=== PATIENT | female | born 1995 | race Caucasian/White ===

== ENCOUNTER 2020-02-22 12:32 | Outpatient (RCR) | payer MEDICAID, SELFPAY | END 2020-03-07 23:59 | disposition home or self-care (01) | LOC: SPT 12:32 | PROVIDERS: PCP Family Medicine; Referring Provider Family Medicine; Visit Provider Family Medicine | DX: O26.893 Other specified pregnancy related conditions, third trimester (principal); Z3A.00 Weeks of gestation of pregnancy not specified | CPT/HCPCS: 97110; 97161; 97530 ==

== ENCOUNTER 2020-04-02 19:13 | Inpatient (IN) | payer MEDICAID, SELFPAY ==
[2020-04-02] VITALS (8 sets, daily range): BP systolic 0–155; BP diastolic 0–94; PULSE 71–91; TEMP 36.9; BMI 40.3
[2020-04-02 20:57] LABS: Basophils % 0.3 %; Eosinophils # 0.1 10^3/uL (0.0-0.8); Eosinophils % 1.5 %; Hematocrit 33.5 % (37.0-47.0); Lymphocytes # 2.3 10^3/uL (0.8-4.8); Lymphocytes % 24.3 %; Mean Corpuscular HGB Conc 32.8 g/dL (30.0-36.0); Mean Corpuscular Hemoglobin 29.3 pg (28.0-34.0); Mean Corpuscular Volume 89.1 fL (81-99); Monocytes # 0.5 10^3/uL (0.2-0.9); Monocytes % 4.8 %; Neutrophils # 6.41 10^3/uL (1.8-7.7); Neutrophils % 68.5 %; Nucleated Red Blood Cells % 0 %; Platelet Count 252 10^3/cmm (130-400); Red Blood Count 3.76 10^6/uL (4.1-5.3); Red Cell Distribution Width 13.1 % (12.1-15.1); White Blood Count 9.4 10^3/uL (4.0-10.0)
[2020-04-02] MEDS: miSOPROStol 100 mcg tablet 25 MCG VAGINAL (21:02)
[2020-04-02] MEDS: dextrose 5%-lactated ringers 1,000 ML 125 ML IV (21:03)
[2020-04-02] MEDS: ampicillin 2,000 MG in sodium chloride 0.9% (plus) 50 ML 100 MG IV (21:04)
[2020-04-03] VITALS (118 sets, daily range): BP systolic 0–161; BP diastolic 0–94; PULSE 64–143; RESP 16–19; TEMP 36.6–37; O2SAT 97–98
[2020-04-03] MEDS: ampicillin 1,000 MG in sodium chloride 0.9% (plus) 50 ML 100 MG IV ×6 (01:30→22:36)
[2020-04-03] MEDS: miSOPROStol 100 mcg tablet 25 MCG VAGINAL (03:14)
[2020-04-03] MEDS: lactated ringers 1,000 ML 999 ML IV ×2 (08:45→21:30)
[2020-04-03] MEDS: oxytocin 30 UNIT/500 ML BAG IV (09:17)
[2020-04-03] MEDS: dextrose 5%-lactated ringers 1,000 ML 125 ML IV ×2 (11:53→23:41)
[2020-04-03] MEDS: fentaNYL 50 mcg/mL INJ 2mL IV ×5 (14:53→20:16)
--- NOTE | 2020-04-03 23:28 | P.ANESASSM_ITS ---
Pre-Anesthetic Assessment Pre-Anesthetic Assessment: Height/Weight: Height 1.63 m Weight 106.594 kg Temp Pulse Resp BP Pulse Ox 97.9 F 122 H 18 123/69 98 04/03/20 19:00 04/03/20 23:24 04/03/20 20:16 04/03/20 23:24 04/03/20 23:22 Preop Diagnosis: IUP Proposed Procedure: Lumbar Labor Epidural Was Beta Paz taken within 24 hours: N/A Social: Social History: No alcohol and No tobacco Exam: Pre-Anes Outpt Exam: alert, oriented x 3, clear to auscultation bilaterally and regular rate & rhythm History/ROS: No significant history except as noted and No significant complaints Pulmonary: Pulmonary: None reported CV/HEM: CV/HEM: None reported : : None reported Hepatic: Hepatic: None reported GI: GI: None reported Metabolic: Metabolic: None reported Musc/skel: Musc/skel: Lower Back Pain Neuropsych: Neuropsych: None reported Anesthetic Plan: ASA status: 2 Anesthesia: Regional (specify below) (epidural) Meds/Allergies Current Medications: Current Medications Generic Name Dose Route Start Last Admin Trade Name Freq PRN Reason Stop Dose Admin Fentanyl 25 - 100 mcg 04/02/20 19:53 04/03/20 20:16 Sublimaze IV 75 mcg Q1H PRN Administration SEVERE PAIN Lactated Ringer's 1,000 mls @ 999 m ls/hr 04/02/20 19:53 04/03/20 10:36 Lactated Ringers IV Infused .Q1H1M PRN Infusion Per L&D Rescitati on Protocol Dextrose/Lactated Ringer's 1,000 mls @ 125 m ls/hr 04/02/20 20:00 04/03/20 15:30 Dextrose 5%-Lact ated Ringers IV 125 mls/hr .Q8H NÉSTOR Infusion Ampicillin Sodium 1,000 mg/ 50 mls @ 100 mls/ hr 04/03/20 00:01 04/03/20 22:36 Sodium Chloride IV 100 mls/hr Q4H NÉSTOR Administration Protocol Dextrose/Lactated Ringer's 1,000 mls @ 125 m ls/hr 04/02/20 20:15 04/03/20 12:47 Dextrose 5%-Lact ated Ringers IV Not Given .Q8H NÉSTOR Oxytocin 30 unit in 500 ml s @ 1 mls/hr 04/03/20 07:30 04/03/20 19:51 Pitocin IV 8 milliunit/min .Q24H NÉSTOR 8 mls/hr Titration Protocol 1 MILLIUNIT/MIN Ropivacaine 200 mg in 100 mls @ 13 mls/hr 04/03/20 21:30 04/03/20 23:14 Naropin Premix EPIDURAL 12 mls/hr .Q7H42M NÉSTOR Administration Lactated Ringer's 1,000 mls @ 999 m ls/hr 04/03/20 21:27 04/03/20 21:30 Lactated Ringers IV 999 mls/hr .Q1H1M PRN Administration See label comment s PFSH Anesthesia Female Reproductive History: Date of last menstrual period: 06/23/19 : 6 Data Anesthesia CBC & Chem 7: 04/02/20 20:30 Other Labs: Laboratory Results - last 48 hr 04/02/20 20:30 WBC 9.4 RBC 3.76 L Hgb 11.0 L Hct 33.5 L MCV 89.1 MCH 29.3 MCHC 32.8 RDW 13.1 Plt Count 252 MPV 11.0 H Neut % (Auto) 68.5 Lymph % (Auto) 24.3 [place] % (Auto) 4.8 Eos % (Auto) 1.5 Baso % (Auto) 0.3 Neut # (Auto) 6.41 Lymph # (Auto) 2.3 [place] # (Auto) 0.5 Eos # (Auto) 0.1 Baso # (Auto) 0.0 Nucleated RBC % (auto) 0 Nucleated RBCs # 0.0 Cardiac Studies: No Data to Display Anesthesia Procedures Epidural: Time Out Performed: Yes Consents Signed: Procedure Consent Consent: from patient, risks and benefits reviewed and patient agrees to proceed Lumbar Level: L3-L4 Epidural position: sitting Epidural procedure: sterile prep of area, 1% lidocaine to numb the area (5 @ l4-5 and 5cc @ l3-4), 18 g needle, negative for paresthesia passed, neg for paresthesia, test dose given, 1.5% xylocaine 1:200k epi (5), 0.2% Ropivacaine bolus ml (5), placed PCEA (5cc q10min x 3), no systemic response, sterile dressing applied, L.U.D. no apparent complications and 0.2% Ropiavacaine @ mls/hr (12) Additional Comments: Called to OB for epidural placement, pt evaluated and assessed for placement and explained procedure. Labs reviewed. Pt agrees to proceed. first attempt at l4-5 unable to pass into epidural space. moved up to l3-4 and epid ural catheter placed to 5cm in space and tolerated well. Bolused with epidural pump and VSS throughout per nursing chart. Last BP 121/69. Pain much improved.
[2020-04-04] VITALS (105 sets, daily range): BP systolic 0–154; BP diastolic 0–98; PULSE 75–120; RESP 16–20; TEMP 36.6–37.3; O2SAT 94–99
[2020-04-04] MEDS: ampicillin 1,000 MG in sodium chloride 0.9% (plus) 50 ML 100 MG IV (06:25)
--- NOTE | 2020-04-04 07:32 | PM.PN ---
Subjective Subjective: Interval history: This is a 24-year-old G6, P0 at 40 weeks 5 days gestation who was admitted the evening of 04/02/2020 for postdates induction. Her cervix was not favorable and she received Cytotec x2. The following morning she was started on Pitocin. She had artificial rupture of membranes around 1215 on 04/03 with clear fluid. At that time she was 2 cm, 75% effaced, -2 station. The patient was attempting to go natural without an epidural. However her labor stalled out at approximately 4 cm. She had not made any cervical change in over 6 hours and discussion was had with the patient to possibly proceed with section versus a trial of epidural to get her to relax. She opted for the epidural and shortly thereafter may change from the 4cm to 7 cm between 10 PM and 2 AM. At that time she was having some recurrent lates so her Pitocin was stopped. Positional changes and fluid bolus as well as stopping the Pitocin had the desired effect and the lights resolved. Since then she has made some change but it has been relatively slow. This morning she is only 8 cm. Her strip is now reassuring with moderate variability positive accelerations and no decelerations. At this time we will go ahead and restart Pitocin. Her contractions have spaced out to q5 minutes. Vitals/I&O/Wt Last Vital Signs Temp 98.1 F 04/04/20 05:00 Pulse 85 04/04/20 07:21 Resp 18 04/03/20 20:16 BP 112/49 04/04/20 07:21 Pulse Ox 98 04/03/20 23:37 04/03/20 04/04/20 04/04/20 22:59 06:59 14:59 Intake Total 1150.850 / 2978.484 195.667 / 3174.151 Balance 1150.850 / 2978.484 195.667 / 3174.151 Weight last 48 hrs Weight 235 lb Physical Exam Const: COMMON NORMALS: no acute distress GENERAL APPEARANCE: cooperative and comfortable Eye: COMMON NORMALS: Equal, round and reactive pupils present and EOMs intact bilaterally PUPIL: Yes Equal, round and reactive pupils present : MANUAL OB EXAM: Deferred manual OB exam (last per nursing: anterior lip/100/0) Extremity: GENERAL: Yes edema Urinary Catheter Management^: Perez: Cath Placed During This Visit: yes Reason for Continuing Indwelling Catheter: Other Urinary Catheter Date of Insertion: 04/04/20 Urinary Catheter Time of Insertion: 01:00 Data : 04/02/20 20:30 A&P Assessment and plan (1) Postmaturity , 40-42 weeks gestation: Induction with expectant management Status: Acute (2) Active labor at term: The patient's labor initially stalled out at 4 cm but this was prior to her receiving an epidural. After she received an epidural she progressed well and is currently an anterior lip. Continue expectant management. heart tones are currently category 1, reassuring. Status: Acute (3) Positive GBS test: The patient was started on ampicillin protocol at admission. she has received multiple doses Status: Acute Attestations Medical Necessity Statement*: Induction with expectant management Coding Level of Care Code Acute Entrance Guard for Chg Fwd Diagnoses Postmaturity , 40-42 weeks gestation O48.0 Active labor at term Positive GBS test B95.1
[2020-04-04] MEDS: dextrose 5%-lactated ringers 1,000 ML 125 ML IV ×2 (09:33→15:17)
[2020-04-04] MEDS: metoclopramide 5 mg/mL SDV 2 mL 10 MG IVP (12:04)
[2020-04-04] MEDS: famotidine 20 mg/2 mL INJ IVP (12:05)
[2020-04-04] MEDS: citric acid-sodium citrate 30 mL UDC PO (12:05)
[2020-04-04] MEDS: clindamycin 900 MG/50 ML PREMIX 100 MG IV (12:06)
--- NOTE | 2020-04-04 12:55 | P.ANESASSM_ITS ---
Pre-Anesthetic Assessment Pre-Anesthetic Assessment: Height/Weight: Height 1.63 m Weight 106.594 kg Temp Pulse Resp BP Pulse Ox 98.1 F 114 H 18 127/75 98 04/04/20 05:00 04/04/20 12:06 04/03/20 20:16 04/04/20 12:06 04/03/20 23:37 Preop Diagnosis: IUP Proposed Procedure: Other Pertinent Information: no changes to previous assessment Meds/Allergies Current Medications: Current Medications Generic Name Dose Route Start Last Admin Trade Name Freq PRN Reason Stop Dose Admin Fentanyl 25 - 100 mcg 04/02/20 19:53 04/03/20 20:16 Sublimaze IV 75 mcg Q1H PRN Administration SEVERE PAIN Lactated Ringer's 1,000 mls @ 999 m ls/hr 04/02/20 19:53 04/03/20 10:36 Lactated Ringers IV Infused .Q1H1M PRN Infusion Per L&D Rescitati on Protocol Dextrose/Lactated Ringer's 1,000 mls @ 125 m ls/hr 04/02/20 20:00 04/04/20 09:33 Dextrose 5%-Lact ated Ringers IV 125 mls/hr .Q8H NÉSTOR Administration Ampicillin Sodium 1,000 mg/ 50 mls @ 100 mls/ hr 04/03/20 00:01 04/04/20 06:25 Sodium Chloride IV 100 mls/hr Q4H NÉSTOR Administration Protocol Dextrose/Lactated Ringer's 1,000 mls @ 125 m ls/hr 04/02/20 20:15 04/03/20 12:47 Dextrose 5%-Lact ated Ringers IV Not Given .Q8H NÉSTOR Oxytocin 30 unit in 500 ml s @ 1 mls/hr 04/03/20 07:30 04/04/20 01:40 Pitocin IV 0 milliunit/min .Q24H NÉSTOR 0 mls/hr Titration Protocol 1 MILLIUNIT/MIN Ropivacaine 200 mg in 100 mls @ 13 mls/hr 04/03/20 21:30 04/04/20 06:42 Naropin Premix EPIDURAL 12 mls/hr .Q7H42M NÉSTOR Administration Lactated Ringer's 1,000 mls @ 999 m ls/hr 04/03/20 21:27 04/03/20 21:30 Lactated Ringers IV 999 mls/hr .Q1H1M PRN Administration See label comment s PFSH Anesthesia Female Reproductive History: Date of last menstrual period: 06/23/19 : 6 Data Anesthesia CBC & Chem 7: 04/02/20 20:30 Other Labs: Laboratory Results - last 48 hr 04/02/20 20:30 WBC 9.4 RBC 3.76 L Hgb 11.0 L Hct 33.5 L MCV 89.1 MCH 29.3 MCHC 32.8 RDW 13.1 Plt Count 252 MPV 11.0 H Neut % (Auto) 68.5 Lymph % (Auto) 24.3 [place] % (Auto) 4.8 Eos % (Auto) 1.5 Baso % (Auto) 0.3 Neut # (Auto) 6.41 Lymph # (Auto) 2.3 [place] # (Auto) 0.5 Eos # (Auto) 0.1 Baso # (Auto) 0.0 Nucleated RBC % (auto) 0 Nucleated RBCs # 0.0 Cardiac Studies: No Data to Display
--- NOTE | 2020-04-04 13:16 | P.OP_ITS ---
Operative Report Date of procedure: April 04, 2020 Pre-op Diagnosis: IUP at 40 weeks 5 days gestation Failure to progress Maternal positive GBS with adequate intrapartum antibiotic prophylaxis Procedure Done: Primary low transverse section Via Pfannenstiel skin incision Specimens removed/disposition: Vertex male infant weight 3880 g, Apgars 8 and 9. Pathology: none sent Anesthesia: Epidural Estimated blood loss (mL): 600 IV fluids (mL): 700 Urine output (mL): 200 Complications: None Condition: stable Disposition: floor Brief History: This is a 24-year-old at 40 weeks 5 days gestation who was admitted for induction due to postdates. She had failure to progress of both dilation, stalling out at a large anterior lip, as well as station -1, So she was taken for primary low transverse section. Procedure: After informed consent patient was taken to the OR where adequate epidural anesthesia was verified. She was prepped and draped in normal sterile fashion in dorsal supine position with a left lateral tilt. A Pfannenstiel skin incision was made and carried through sharply to the underlying layer of fascia. There was some bleeding vessels that were grasped with a hemostat and coagulated using the Bovie. The fascial incision was then extended laterally using the Mayos. The fascia was then grasped with Beth clamps and the underlying rectus muscles were dissected off taking care to avoid injury to the underlying tissue. The peritoneum was entered bluntly and the incision site was manually stretched. There was a moderate amount of serous fluid. The bladder blade was inserted. The vesicouterine peritoneum was identified and entered sharply using the Metzenbaums. The bladder flap was then created digitally and the bladder blade was reinserted. The uterine incision was made in a transverse fashion in the lower uterine segm ent. Amniotic rupture of membranes was performed digitally with moderate meconium noted. The infant was delivered atraumatically with bulb suction of the mouth and nares at delivery. The cord was clamped and cut and the was handed to the waiting pediatric nurse. Cord blood was obtained. The placenta was delivered using fundal pressure, it was grossly intact and normal to inspection. The uterus was then exteriorized from the abdomen. A dry sponge was used to clear the uterus of clots and debris. The uterine incision was then repaired using 0 chromic in a running locked fashion. A second layer of the same suture was used in an imbricating manner. The uterus was then returned to the abdomen. Irrigation was used to clear the gutters of clots and debris. Uterine incision was reinspected for hemostasis. The peritoneum was then reapproximated using 4- 0 Vicryl in a running fashion. The subfascial tissue was inspected for hemostasis and any small bleeders were coagulated using the Bovie. The fascia was then reapproximated using 0 in a running fashion. The subcutaneous tissue was then irrigated and any small bleeders were coagulated using the Bovie. The subcutaneous tissue was then reapproximated using 4-0 Vicryl in a running fashion. The skin was then reapproximated using 4-0 Vicryl on a Edwardo needle. Steri-Strips and a pressure bandage were applied patient went to recovery in stable condition Sponge instrument and needle counts were correct
[2020-04-04] MEDS: docusate sodium 100 mg Capsule PO (18:09)
[2020-04-04] MEDS: ketorolac 30 mg/mL INJ IVP (20:47)
[2020-04-05 03:11] LABS: Hemoglobin 9.9 g/dL (11.5-15.3); Mean Corpuscular HGB Conc 31.9 g/dL (30.0-36.0); Mean Corpuscular Hemoglobin 29.8 pg (28.0-34.0); Mean Corpuscular Volume 93.4 fL (81-99); Mean Platelet Volume 11.7 fL (7.4-10.4); Platelet Count 274 10^3/cmm (130-400); Red Blood Count 3.32 10^6/uL (4.1-5.3); Red Cell Distribution Width 13.6 % (12.1-15.1); White Blood Count 15.6 10^3/uL (4.0-10.0)
[2020-04-05 04:00] VITALS: BP 122/73; PULSE 118; RESP 16; TEMP 37.2
[2020-04-05 08:04] VITALS: BP 118/79; PULSE 135; RESP 20; TEMP 36.5
[2020-04-05] MEDS: docusate sodium 100 mg Capsule PO ×2 (08:17→18:20)
[2020-04-05] MEDS: HYDROcodone-acetaminophen 5-325 mg Tablet PO ×3 (08:17→19:41)
[2020-04-05] MEDS: prenatal vitamin Capsule 1 CAP PO (08:17)
[2020-04-05] MEDS: ibuprofen 800 mg tablet PO ×3 (08:17→21:40)
[2020-04-05 09:02] VITALS: PULSE 120
--- NOTE | 2020-04-05 09:03 | ANE.PACU2 ---
Inpatient post-anesthesia follow up: Airway intact: Yes Vital signs: Temperature 97.7 F Pulse Rate 120 Respiratory Rate 20 Blood Pressure 118/79 Pulse Oximetry 99 Oxygen Delivery Me thod Room Air Oxygen Flow Rate Fraction of Inspir ed Oxygen Hydration adequate: Yes Nausea and vomiting: No Pain level: 3 Mental status: Baseline Additional Comments: urinating without wahl, no headaches, no signs of infection at neuraxial site, no numbness/weakness in legs, patient up and walking
[2020-04-05 10:21] VITALS: BP 111/73; PULSE 114; RESP 18; TEMP 36.7; O2SAT 97
[2020-04-05 17:11] VITALS: BP 101/69; PULSE 102; RESP 16
--- NOTE | 2020-04-05 17:15 | PM.PN ---
Subjective Subjective: Interval history: Postop day #1 primary section for failure to progress. Patient is doing well. She is having expected postoperative pain that is managed with oral medications. She is tolerating a regular diet and is ambulating. Vitals/I&O/Wt Last Vital Signs Temp 98.1 F 04/05/20 10:21 Pulse 102 H 04/05/20 17:11 Resp 16 04/05/20 17:11 BP 101/69 04/05/20 17:11 Pulse Ox 97 04/05/20 10:21 04/05/20 04/05/20 04/05/20 06:59 14:59 22:59 Output Total 400 / 2800 850 / 850 Balance -400 / -1100 -850 / -850 Physical Exam Const: COMMON NORMALS: no acute distress GENERAL APPEARANCE: cooperative HENMT: COMMON NORMALS: normocephalic and atraumatic HEAD & SCALP: normocephalic and atraumatic Eye: COMMON NORMALS: Equal, round and reactive pupils present and EOMs intact bilaterally PUPIL: Yes Equal, round and reactive pupils present Chest: COMMONS NORMALS: normal inspection of the chest Resp: COMMON NORMALS: normal respiratory effort and clear to auscultation bilaterally AUSCULTATION: clear to auscultation bilaterally Cardio: COMMON NORMALS: regular rate and regular rhythm RATE: regular rate RHYTHM: regular rhythm GI: COMMON NORMALS: Normal to inspection, nondistended, normoactive bowel sounds present and Soft to palpation (Fundus firm U- 2) INSPECTION: Yes other (Incision clean dry and intact) PALPATION: Yes Soft to palpation (Fundus firm U- 2) Extremity: COMMON NORMALS: negative for no calf tenderness GENERAL: Yes edema (Nonpitting 3+) Urinary Catheter Management^: Perez: Cath Placed During This Visit: yes, but has since been removed by the nurse Reason for Continuing Indwelling Catheter: Decision to DC Catheter Urinary Catheter Date of Insertion: 04/04/20 Urinary Catheter Time of Insertion: 01:00 Date Urinary Catheter Removed: 04/05/20 Time Urinary Catheter Discontinued: 07:35 Data : 04/05/20 01:15 A&P Assessment and plan (1) Status post primary low transverse section: Doing well. Continue routine postoperative and care. If doing well, home tomorrow Status: Acute Attestations Medical Necessity Statement*: Routine postoperative care Coding Level of Care Code Acute Family Consumer Science Fcs Teacher for Chg Fwd Diagnoses Status post primary low transverse section Z98.891
[2020-04-05 21:51] VITALS: BP 97/62; PULSE 97; RESP 18; TEMP 36.4; O2SAT 98
[2020-04-06 03:59] VITALS: BP 111/73; PULSE 82; RESP 16; TEMP 36.5; O2SAT 100
[2020-04-06] MEDS: HYDROcodone-acetaminophen 5-325 mg Tablet PO ×2 (04:12→08:29)
[2020-04-06] MEDS: prenatal vitamin Capsule 1 CAP PO (08:28)
[2020-04-06] MEDS: docusate sodium 100 mg Capsule PO (08:28)
[2020-04-06] MEDS: ibuprofen 800 mg tablet PO (08:28)
[2020-04-06 10:08] VITALS: BP 115/74; PULSE 100; RESP 16; TEMP 36.7; O2SAT 98
--- NOTE | 2020-04-06 10:13 | PM.OBGYDC ---
Discharge Providers STATE ASSESSED PROPERTIES DIRECTOR Date of Admission: 04/02/20 19:13 Date of Discharge: 04/06/20 Attending Provider at Admission: Kusum Odom MD Attending Provider at Discharge: Kusum Odom MD Primary Care Provider: Kusum Odom MD Diagnoses at Discharge Discharge Diagnosis (1) Status post primary low transverse section: Status: Acute Reason for Visit Reason for Visit: IOL Hospital Course Hospital Course: This is a 24-year-old G6 now P1 who was admitted for postdate induction. Unfortunately she had failure to progress of both station and dilation. She was then taken for primary section. There were no complications during the operation. She had a viable male infant Apgars 8 and 9. Mother did well after delivery. She was ambulating, tolerating a regular diet, passing flatus, and had appropriate postoperative pain was controlled with oral medications. Information Peripartum Data: Delivery Method: Section Physical Exam HENMT: COMMON NORMALS: normocephalic HEAD & SCALP: normocephalic Chest: COMMONS NORMALS: normal inspection of the chest Resp: COMMON NORMALS: normal respiratory effort and clear to auscultation bilaterally AUSCULTATION: clear to auscultation bilaterally Cardio: COMMON NORMALS: regular rate and regular rhythm RATE: regular rate RHYTHM: regular rhythm GI: COMMON NORMALS: Normal to inspection, nondistended, normoactive bowel sounds present and Soft to palpation INSPECTION: Yes other (Incision clean dry and intact) PALPATION: Yes Soft to palpation and Yes Tenderness to palpation present (GI) (Appropriate mild postoperative) Extremity: GENERAL: No calf tenderness and Yes edema Urinary Catheter Management^: Perez: Cath Placed During This Visit: yes, but has since been removed by the nurse Reason for Continuing Indwelling Catheter: Decision to DC Catheter Urinary Catheter Date of Insertion: 04/04/20 Urinary Catheter Time of Insertion: 01:00 Date Urinary Catheter Removed: 04/05/20 Time Urinary Catheter Discontinued: 07:35 Discharge Data Vitals: Last Vital Signs Temp 98.1 F 04/06/20 10:08 Pulse 100 04/06/20 10:08 Resp 16 04/06/20 10:08 BP 115/74 04/06/20 10:08 Pulse Ox 98 04/06/20 10:08 Discharge Plan Discharge Patient Disposition: Home Condition: Stable Prescriptions: New hydrocodone-acetaminophen 5-325 mg Tablet 1 - 2 tab PO Q4H PRN (Reason: Moderate To Severe Pain) Qty: 20 RF: 0 docusate sodium 100 mg Capsule 100 mg PO BID Qty: 60 RF: 0 No Action No Known Home Medications RF: 0 Discharge Orders: Discharge Order (Routine); Ordered 04/06/20 Ordered By: Kusum Odom Referrals: Kusum Odom MD [Primary Care Provider] - 4-7 days Discharge Diet: Usual diet Discharge Activity: Limit activity as instructed Patient Instructions: Bleeding (DC), OB - Jacinto/Lei, OB Discharge Report, OB Food/Drug Interaction Guide, OB Home Care, OB Proud Parent Packet Discharge Attestations STATE ASSESSED PROPERTIES DIRECTOR Time Spent in Discharge Care*: less than 30 min Coding Level of Care Code Acute Transportation Security Officer for Chg Fwd Diagnoses Status post primary low transverse section Z98.891
[2020-04-06 11:06] VITALS: BP 120/72; PULSE 115; RESP 18; TEMP 36.9; O2SAT 97
== END 2020-04-06 11:50 | disposition home or self-care (01) | DRG 788 ==
LOC: OPOB 19:15 → OBGYN 19:20
PROVIDERS: Admitting Provider Family Medicine; PCP Family Medicine; Visit Provider Family Medicine
PROC: 10D00Z1 Extraction of Products of Conception, Low, Open Approach (ICD-10-PCS; CPT 59514; principal; 2020-04-04 12:30)
DX: O48.0 Post-term pregnancy (principal); Z3A.40 40 weeks gestation of pregnancy; Z37.0 Single live birth; O99.824 Streptococcus B carrier state complicating childbirth; O77.0 Labor and delivery complicated by meconium in amniotic fluid; O66.40 Failed trial of labor, unspecified
CPT/HCPCS: 36415; 51702; 59025; 85025; 85027; 96374; 96375; 98960; J0290; J1885; J2274; J2765; J2795; J3010; J3490; J7030

== ENCOUNTER → 2020-04-25 09:30 | Outpatient (BNVA) | payer MEDICAID, SELFPAY | PROVIDERS: PCP Family Medicine; Visit Provider Nurse Practitioner Family | DX: Z20.828 Contact with and (suspected) exposure to other viral communicable diseases (principal) | CPT/HCPCS: 87635 ==

== ENCOUNTER → 2024-12-25 16:25 | Outpatient (BNVA) | payer BC, SELFPAY | PROVIDERS: PCP Family Medicine; Visit Provider Registered Nurse Neonatal Intensive Care | DX: J02.9 Acute pharyngitis, unspecified (principal) | CPT/HCPCS: 87880 ==

== ENCOUNTER 2025-03-29 07:29 | Outpatient (CLI) | payer MEDICAID, SELFPAY ==
--- NOTE | 2025-03-29 07:45 | US_ITS ---
WS: [id number] RIGHT UPPER QUADRANT ULTRASOUND HISTORY: K82.8 - Other specified diseases of gallbladder COMPARISON: 03/02/2013 Liver: 14.7 cm in length. Normal size liver and echogenicity. No bile duct dilatation or mass. Portal Vein: Normal hepatopetal flow with monophasic waveform. Gallbladder: Normally distended gallbladder with no stones or wall thickening. CBD: 0.3 cm Pancreas: Portions of the head and tail are obscured. The body is negative. Right kidney: 9.9 cm in length. Normal size and echogenicity. No hydronephrosis or mass. Aorta and IVC: Unremarkable abdominal aorta and IVC. No ascites. US/US gall bladder [id number] IMPRESSION: 1. Normal gallbladder. No cholelithiasis or gallbladder wall thickening. 2. Normal common bile duct.
== END 2025-03-29 07:30 | disposition home or self-care (01) ==
LOC: RAD 07:33
PROVIDERS: PCP Nurse Practitioner Family; Visit Provider Nurse Practitioner Family
DX: K82.8 Other specified diseases of gallbladder (principal)
CPT/HCPCS: 76705